=== PATIENT | female | born 1990 | race Caucasian/White ===

== ENCOUNTER 2017-06-03 19:43 | Emergency (ER) | payer OTHER ==
[~2017-06-03] VITALS: Ht 152.4 cm; Wt 43.0 kg
[~2017-06-03 19:43] MED LIST: AMIT10 PO; AZIT250T43 PO; CETI10 PO; DICY20TA10 PO; NUVAMIS PV; ZOFR4TAB3 SL
[2017-06-03 19:46] VITALS: BP 125/80; PULSE 120; RESP 20; TEMP 98.9; O2SAT 100
[2017-06-03] MEDS ORDERED: SODIUM CHLOR 0.9% 1000 ML INJ 1,000 ML IV SCH (20:47)
[2017-06-03 20:50] LABS: MEAN CORPUSCULAR HGB CONC 36.2 % (32.0-36.0)
--- NOTE | 2017-06-03 20:54 | PD ---
HPI Chief Complaint: Abdominal Pain Time Seen by Provider: 20:40 Travel History International Travel<30 days: No Contact w/Intl Traveler<30days: No Traveled to known affect area: No History of Present Illness HPI 26-year-old female with history of IBS, gastroparesis, presents for evaluation of abdominal pain. She reports that she has chronic epigastric and lower abdominal pain secondary to her IBS and gastroparesis. She reports that she took her typical medicationsZofran, azithromycin, hyoscyamine, amitrypitaline, however her pain has persisted which prompted evaluation per his reports that it feels like a flareup of her IBS. She reports that this tends to happen when she is on her menstrual period or when she has a cold. She reports that she has had a slight cough and congestion over the past few days and she started her menstrual period 2 days ago. She endorses some nausea. She denies vomiting , diarrhea or constipation, fevers or chills, dysuria, flank pain. She has no other complaints at this time. 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 Initially tachycardic in triage. SKIN: Warm and dry. HEAD: Atraumatic. Normocephalic. EYES: Pupils equal and round. No scleral icterus. No injection or drainage. ENT: No nasal bleeding or discharge. Mucous membranes pink and moist. No oral pharyngeal erythema or exudate. NECK: Trachea midline. No JVD. No lymphadenopathy. CARDIOVASCULAR: Regular rate and rhythm. No murmur appreciated. RESPIRATORY: No accessory muscle use. Clear to auscultation. Breath sounds equal bilaterally. GASTROINTESTINAL: Abdomen soft, mild epigastric and suprapubic tenderness without guarding. Nondistended. MUSCULOSKELETAL: No obvious deformities. No clubbing. No cyanosis. No edema. NEUROLOGICAL: Awake and alert. No obvious cranial nerve deficits. Motor grossly within normal limits. Normal speech. PSYCHIATRIC: Appropriate mood and affect; insight and judgment normal. Data Data Last Documented VS Vital Signs Date Time Temp Pulse Resp B/P Pulse Ox O2 Delivery O2 Flow Rate FiO2 06/03/17 21:27 16 06/03/17 19:46 98.9 120 125/80 100 Orders Complete Blood Count With Diff (06/03/17 20:47) Comprehensive Metabolic Panel (06/03/17 20:47) Lipase (06/03/17 20:47) Urinalysis - C+S If Indicated (06/03/17 20:47) Iv Access Insert/Monitor (06/03/17 20:47) Ecg Monitoring (06/03/17 20:47) Oximetry (06/03/17 20:47) Sodium Chlor 0.9% 1000 Ml Inj (Ns 1000 M (06/03/17 20:47) Sodium Chloride 0.9% Flush (Ns Flush) (06/03/17 21:00) Dicyclomine Inj (Bentyl Inj) (06/03/17 21:00) Ketorolac Inj (Toradol Inj) (06/03/17 21:00) Ed Urine Pregnancytest Poc (06/03/17 20:47) Metoclopramide Inj (Reglan Inj) (06/03/17 21:00) Labs Laboratory Tests Test 06/03/17 21:20 White Blood Count 5.6 TH/MM3 Red Blood Count 4.06 MIL/MM3 Hemoglobin 13.1 GM/DL Hematocrit 36.2 % Mean Corpuscular Volume 89.2 FL Mean Corpuscular Hemoglobin 32.3 PG Mean Corpuscular Hemoglobin 36.2 % Concent Red Cell Distribution Width 13.0 % Platelet Count 260 TH/MM3 Mean Platelet Volume 9.4 FL Neutrophils (%) (Auto) 53.7 % Lymphocytes (%) (Auto) 28.5 % Monocytes (%) (Auto) 15.1 % Eosinophils (%) (Auto) 1.7 % Basophils (%) (Auto) 1.0 % Neutrophils # (Auto) 3.0 TH/MM3 Lymphocytes # (Auto) 1.6 TH/MM3 Monocytes # (Auto) 0.8 TH/MM3 Eosinophils # (Auto) 0.1 TH/MM3 Basophils # (Auto) 0.1 TH/MM3 CBC Comment AUTO DIFF Differential Comment AUTO DIFF CONFIRMED Urine Color YELLOW Urine Turbidity CLEAR Urine pH 7.5 Urine Specific Marilla 1.022 Urine Protein TRACE mg/dL Urine Glucose (UA) NEG mg/dL Urine Ketones 40 mg/dL Urine Occult Blood MOD Urine Nitrite NEG Urine Bilirubin NEG Urine Urobilinogen LESS THAN 2.0 MG/DL Urine Leukocyte Esterase NEG Urine RBC LESS THAN 1 /hpf Urine WBC 1 /hpf Urine Squamous Epithelial 1 /hpf Cells Microscopic Urinalysis Comment CULT NOT INDICATED Sodium Level 138 MEQ/L Potassium Level 3.7 MEQ/L Chloride Level 103 MEQ/L Carbon Dioxide Level 24.3 MEQ/L Anion Gap 11 MEQ/L Blood Urea Nitrogen 11 MG/DL Creatinine 0.75 MG/DL Estimat Glomerular Filtration 94 ML/MIN Rate Random Glucose 91 MG/DL Calcium Level 8.9 MG/DL Total Bilirubin 0.3 MG/DL Aspartate Amino Transf 27 U/L (AST/SGOT) Alanine Aminotransferase 19 U/L (ALT/SGPT) Alkaline Phosphatase 77 U/L Total Protein 7.8 GM/DL Albumin 3.7 GM/DL Lipase 140 U/L MDM Medical Decision Making Medical Screen Exam Complete: Yes Emergency Medical Condition: Yes Medical Record Reviewed: Yes Interpretation(s) CBC unremarkable CMP unremarkable Lipase normal Urinalysis 40 ketones, moderate blood ED urine test negative Differential Diagnosis Gastroparesis, IBD, dysmenorrhea, pancreatitis, gastritis, biliary colic, UTI, pelvic inflammatory disease Narrative Course 26-year-old female with chronic abdominal pain secondary to IBS and gastroparesis presents for evaluation of what she describes as a flareup of her IBS. She is having a crampy sensation in the epigastrium and lower abdomen. On examination her abdomen is soft and mild tenderness to palpation in the epigastrium and suprapubic region. Plan is for basic lab work, she will be given IV fluids, Reglan, Toradol, IM Bentyl. The patient's lab work is been reviewed. Upon reexamination she does feel improved. 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 Diagnosis Primary Impression: Gastroparesis Additional Impression: IBS (irritable bowel syndrome) Qualified Code: K58.9 - Irritable bowel syndrome, unspecified type Additional Instructions: Take at home medication as needed. Stay well hydrated well-nourished. Follow- up with your pipeline executive. Return for any emergent medical conditions. Med/Other Pt SpecificInfo: No Change to Meds Disposition: 01 DISCHARGE HOME Condition: Stable Robert Wong Jun 03, 2017 20:54
[2017-06-03] MEDS ORDERED: SODIUM CHLORIDE 0.9% FLUSH 10 ML FLUSH IV FLUSH PRN (21:00)
[2017-06-03] MEDS ORDERED: METOCLOPRAMIDE HCL 10 MG/2 ML VIAL IV PUSH ONE (21:00)
[2017-06-03] MEDS ORDERED: DICYCLOMINE HCL 20 MG/2 ML VIAL IM ONE (21:00)
[2017-06-03] MEDS ORDERED: KETOROLAC TROMETHAMINE 30 MG/ML (IVP) VIAL IVP ONE (21:00)
[2017-06-03 21:27] VITALS: RESP 16
[2017-06-03 21:50] LABS: BASOPHIL # 0.1 TH/MM3 (0-0.2); EOSINOPHIL # 0.1 TH/MM3 (0-0.4); EOSINOPHIL % 1.7 % (0.0-4.0); HEMATOCRIT 36.2 % (35.0-46.0); LYMPH % 28.5 % (9.0-44.0); LYMPHOCYTE # 1.6 TH/MM3 (1.0-4.8); MEAN CELL VOLUME 89.2 FL (80.0-100.0); MEAN CORPUSCULAR HEMOGLOBIN 32.3 PG (27.0-34.0); MONO % 15.1 % (0.0-8.0); NEUT % 53.7 % (16.0-70.0); PLATELET COUNT 260 TH/MM3 (150-450); RED BLOOD COUNT 4.06 MIL/MM3 (4.00-5.30); WHITE BLOOD COUNT 5.6 TH/MM3 (4.0-11.0)
[2017-06-03 21:52] LABS: BLOOD, URINE MOD (NEG); COMMENT (UR) CULT NOT INDICATED; CULTURE IF INDICATED CULT NOT INDICATED; GLUCOSE,URINE NEG (NEG); KETONE, URINE 40 mg/dL (NEG); NITRITE,URINE NEG (NEG); PH, URINE 7.5 (5.0-8.5); SQUAMOUS EPITHELIAL CELL URINE 1 /hpf (0-5); URINE COLOR YELLOW (YELLW/STRAW)
[2017-06-03 21:53] LABS: HEMO FLAGS AUTO DIFF
[2017-06-03 22:05] LABS: ALT (GPT) 19 U/L (10-53)
[2017-06-03 22:08] LABS: ALKALINE PHOSPHATASE 77 U/L (45-117); TOTAL BILIRUBIN ADULT 0.3 MG/DL (0.2-1.0)
[2017-06-03 22:13] LABS: ANION GAP 11 MEQ/L (5-15); AST (GOT) 27 U/L (15-37); BICARBONATE 24.3 MEQ/L (21.0-32.0); BLOOD UREA NITROGEN 11 MG/DL (7-18); CHLORIDE 103 MEQ/L (98-107); GLOMERULAR FILTRATION RATE 94 ML/MIN (>89); SODIUM (NA) 138 MEQ/L (136-145)
[2017-06-03 22:15] LABS: SCAN/DIFF AUTO DIFF CONFIRMED
[2017-06-03 22:21] LABS: POTASSIUM 3.7 MEQ/L (3.5-5.1)
[2017-06-08] MEDS ORDERED: AMIT25TA9 PO (13:12)
[2017-06-08] MEDS ORDERED: AZIT250T3 PO (13:12)
[2017-06-08] MEDS ORDERED: DICY10CA12 PO (13:12)
[2017-06-08] MEDS ORDERED: ZOFR4TAB PO (13:12)
[2017-06-08] MEDS ORDERED: HYOS0.37 PO (13:12)
== END 2017-06-03 23:04 | disposition home or self-care (01) ==
LOC: NEPD 19:43
DX: K31.84 Gastroparesis (principal); K58.9 Irritable bowel syndrome, unspecified
CPT/HCPCS: 80053; 81001; 83690; 84703; 85025; 96372; 96374; 96375; 99284; J0500; J1885; J2765; J7030